=== PATIENT | female | born 1995 | race Caucasian/White ===

== ENCOUNTER 2018-01-23 21:49 | Emergency (ER) | payer BC, MEDICAID ==
[~2018-01-23] VITALS: Ht 162.6 cm; Wt 63.5 kg
[2018-01-23 22:15] VITALS: BP 111/75
[2018-01-23] MEDS ORDERED: IBUPROFEN600 MG ORAL (22:22)
--- NOTE | 2018-01-23 22:23 | Emergency Room Report ---
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 She presents with chief complaint of sore throat, coughing congestion. Onset for few days. No nausea no vomiting. Pain is 7 out of 10. Worse with swallowing. Worse with inspiration. Has not anything for it. Denies any other complaint. Allergies: Coded Allergies: No Known Allergies (Unverified , 01/23/18) Patient History Past Medical History: none, see triage record, old chart reviewed Past Surgical History: none Pertinent Family History: none Social History: Denies: smoking Last Menstrual Period: 01/21/2018 Now: No : 0 Immunizations: UTD, other Reviewed Nursing Documentation: PMH: Agreed; PSxH: Agreed Nursing Documentation-PMH Past Medical History: No Stated History Review of Systems Eye: Denies: eye pain, blurred vision ENT: Reports: ear pain, throat pain; Denies: nose congestion, throat swelling Respiratory: Reports: cough; Denies: shortness of breath Cardiovascular: Denies: chest pain, palpitations Gastrointestinal: Denies: abdominal pain, diarrhea, nausea, vomiting Musculoskeletal: Denies: back pain, joint pain Skin: Denies: rash Neurological: Denies: headache, numbness Endocrine: Denies: increased thirst, increased urine Hematologic/Lymphatic: Denies: easy bruising All Other Systems: negative except mentioned in HPI Physical Exam Vital Signs Date Time Temp Pulse Resp B/P (MAP) Pulse Ox O2 Delivery O2 Flow Rate FiO2 01/23/18 21:55 99.0 86 16 111/75 97 Room Air 99.0 vitals unremarkable Sp02 EP Interpretation: reviewed, normal General Appearance: well appearing, no apparent distress, alert Head: normocephalic, atraumatic Eyes: bilateral eye PERRL, bilateral eye EOMI ENT: hearing grossly normal, tonsillar swelling, pharyngeal erythema Neck: full range of motion, supple, no meningismus Respiratory: chest non-tender, lungs clear, normal breath sounds Cardiovascular #1: regular rate, rhythm, no murmur Gastrointestinal: normal bowel sounds, non tender, no mass, no organomegaly, no bruit, non-distended Musculoskeletal: back normal, gait/station normal, normal range of motion Psychiatric: mood/affect normal Skin: warm/dry Medical Decision Making Diagnostic Impression: Primary Impression: URI, acute ER Course Patient with a viral upper rest or infection. No evidence of bacterial infection. No evidence of strep throat, retropharyngeal abscess or peritonsillar abscess. We'll discharge home. Last Vital Signs Date Time Temp Pulse Resp B/P (MAP) Pulse Ox O2 Delivery O2 Flow Rate FiO2 01/23/18 21:55 99.0 86 16 111/75 97 Room Air 99.0 Status: unchanged Disposition: HOME, SELF-CARE Condition: Stable Scripts Ibuprofen* (MOTRIN*) 600 Mg Tablet 600 MG ORAL THREE TIMES A DAY, #30 TAB 0 Refills Prov: John Evans MD 01/23/18 Additional Instructions: Follow-up with your doctor in 7 days. Return if symptom worsen. Increase fluid. Salt water gargle. John Evans MD Jan 23, 2018 22:23
[2018-01-23 22:40] VITALS: BP 116/75
== END 2018-01-23 22:40 | disposition home or self-care (01) ==
LOC: EMR 22:11
DX: J06.9 Acute upper respiratory infection, unspecified (principal)
CPT/HCPCS: 99282